=== PATIENT | female | born 1965 | race Caucasian/White ===

== ENCOUNTER 2025-03-08 16:18 | Outpatient (REF) | payer SELFPAY ==
--- NOTE | 2025-03-08 15:40 | ORMUBX_PTH ---
PATIENT: Tess Eller LOC: [facility] U#:[id number] AGE/SX: 60/F ROOM: RE03/08/[address]: Omero Celeste MD : 1965 BED: DIS: 03/08/2025 SPEC #: [id number] RECD: 03/08/25 17:45 STATUS: CURT REQ #: [id number] JOY: 03/08/25 15:[address]: Omero Celeste DEPT: Surgical Specimen RECD BY: Mnaju Cunningham ENTERED: 03/08/25 17:45 SP TYPE: ORMUBX MAK DR: Unknown,Unknown Tissues: 1 - MUCOSA, NOS Procedures: GROSS AND MICRO LEVEL 4 Comments: [id number]
== END 2025-03-08 16:19 | disposition home or self-care (01) ==
LOC: LBN 16:18
PROVIDERS: Visit Provider Otolaryngology
DX: K13.79 Other lesions of oral mucosa (principal)
CPT/HCPCS: 88305